=== PATIENT | male | born 1990 | race Caucasian/White ===

== ENCOUNTER 2021-05-22 08:22 | Emergency (ER) | payer OTHER ==
[2021-05-22 08:39] VITALS: BP 132/82
--- NOTE | 2021-05-22 08:50 | ED Physician Documentation ---
History of Present Illness - Stated complaint Stated Complaint: FEVER/THROAT PX/HEAD PX - Chief complaint Chief Complaint: General - History obtained from History obtained from: Patient - History of Present Illness Timing: Yesterday - Additonal information Additional information: 31-year-old male with exposure to Covid was asked by his command to come in to get a Covid test. The patient states he has some nasal congestion slight cough. Review of Systems Constitutional: reports: Myalgias. denies: Fever, Chills Eyes: denies: Decreased vision Ears: denies: Ear pain Nose: reports: Rhinorrhea / runny nose, Congestion Throat: reports: Sore throat Respiratory: reports: Cough GI: denies: Vomiting, Diarrhea PD PAST MEDICAL HISTORY - Allergies Allergies/Adverse Reactions: Allergies Allergy/AdvReac Type Severity Reaction Status Date / Time No Known Drug Allergies Allergy Verified 05/22/21 08:30 PD ED PE NORMAL - Vitals Vital signs reviewed: Yes - General General: Alert and oriented X 3, No acute distress, Well developed/nourished - HEENT HEENT: Atraumatic, PERRL, EOMI - Neck Neck: Supple, no meningeal sign, No bony TTP - Cardiac Cardiac: RRR, No murmur - Respiratory Respiratory: No respiratory distress, Clear bilaterally - Derm Derm: Normal color, Warm and dry, No rash - Extremities Extremities: No deformity, No edema - Neuro Neuro: Alert and oriented X 3, 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 He has an exposure to Covid, has normal vital signs and on exam has clear sounding lungs. A send out test for Covid is obtained. Departure - Departure Disposition: Home, Self Care Clinical Impression: Viral URI with cough Instructions: COVID-19 [facility], Flu and Cold: Nutrition, Prevention and Treatment Tips Follow-Up: [facility] [place] [Provider Group] Comments: Vadim, it looks like you were exposed to Covid and you are having mild symptoms and are immunized. You should do well with this illness and if you develop progressive cough shortness of breath and fever a follow-up is recommended. Your test results will be available in 1 to 3 days. Quarantine until you have a negative test or as indicated for Covid. Discharge Date/Time: 05/22/21 08:53
== END 2021-05-22 08:53 | disposition home or self-care (01) ==
LOC: ED 08:22
DX: U07.1 COVID-19 (principal); J06.9 Acute upper respiratory infection, unspecified
CPT/HCPCS: 99282; 99283